=== PATIENT | female | born 1960 | race Caucasian/White ===

== ENCOUNTER 2018-04-25 11:30 | Outpatient (CLI) | payer MEDICARE ==
[2018-04-25] MEDS ORDERED: IOVERSOL 320 50 ML VIAL ONE (11:42)
[2018-04-25] MEDS ORDERED: IOPAMIDOL-300 100 ML VIAL ONE (11:42)
[2018-04-25 12:00] LABS: CREATININE 0.9 mg/dL (0.4-1.0)
[2018-04-25] MEDS ORDERED: IOPAMIDOL-300 100 ML VIAL IVP ONE (12:57)
[2018-04-25] MEDS ORDERED: IOVERSOL 320 50 ML VIAL PO ONE (12:58)
--- NOTE | 2018-04-25 17:02 | CT Report ---
Reason: RENAL CA Procedure Date: 04/25/2018 Accession Number: [id number] / [id number] Procedure: CT - CHEST W CPT Code: FULL RESULT: EXAM: CT CHEST WITH CONTRAST. EXAM DATE: 04/25/2018 12:46 PM. CLINICAL HISTORY: Renal cancer. COMPARISONS: ABDOMEN/PELVIS W/ 04/25/2018 12:47 PM. TECHNIQUE: Routine helical CT imaging was performed through the chest. IV contrast: 100 cc of Isovue-300. Reconstructions: Coronal and sagittal. In accordance with CT protocol optimization, one or more of the following dose reduction techniques were utilized for this exam: automated exposure control, adjustment of mA and/or KV based on patient size, or use of iterative reconstructive technique. FINDINGS: Lungs/Pleura: No bronchial thickening, consolidation, or edema. Pulmonary vasculature is normal. No pericardial or pleural effusion. No pneumothorax. Lung nodules as follows: Right upper lobe: 5 mm partially calcified nodule image 24. Right middle lobe: None. Right lower lobe: None. Left upper lobe/lingula: None. Left lower lobe: 7 mm ill-defined pulmonary nodule image 31. 2 mm calcified pulmonary nodule image 41. Mediastinum: No adenopathy or masses. Heart and great vessels appear normal. Nonspecific circumferential wall thickening (up to 7 mm in thickness) distal 5 cm of the esophagus with small hiatal hernia. Bones: Unremarkable. Visualized Abdomen: Reported separately. Other: None. IMPRESSION: 1. 7 mm ill-defined pulmonary nodule in the left lower lobe is indeterminate. In the setting of history of renal cell carcinoma, consider short interval follow-up imaging in 3 months to assess stability. If the finding remains stable, longer term follow-up could be performed. 2. Circumferential thickening distal esophagus associated with small hiatal hernia. Consider further evaluation with double contrast barium study to assess mucosa and for reflux versus direct visualization with endoscopy. [facility]
--- NOTE | 2018-04-25 17:02 | CT Report ---
Reason: RENAL CA Procedure Date: 04/25/2018 Accession Number: [id number] / [id number] Procedure: CT - Abdomen/Pelvis W CPT Code: FULL RESULT: EXAM: CT ABDOMEN AND PELVIS EXAM DATE: 04/25/2018 12:46 PM. CLINICAL HISTORY: Renal cancer. COMPARISONS: None. TECHNIQUE: Routine helical CT imaging was performed through the abdomen and pelvis. IV contrast: ISOVUE 300 100 mL. Enteric contrast: No. Reconstructions: Coronal and sagittal. In accordance with CT protocol optimization, one or more of the following dose reduction techniques were utilized for this exam: automated exposure control, adjustment of mA and/or KV based on patient size, or use of iterative reconstructive technique. FINDINGS: Lung Bases: Dictated separately. For chest CT findings please see separate dictation. Liver: Normal. No masses. Gallbladder/Bile Ducts: Unremarkable. Spleen: Normal. Pancreas: Normal. Adrenal Glands: Normal. Kidneys: Right kidney is surgically absent. Left kidney is normal in appearance. No mass, stone or hydronephrosis. Peritoneal Cavity/Bowel: No free fluid, free air or adenopathy. No masses or acute inflammatory process. The appendix is well visualized and normal. Multiple vascular clips are noted along bilateral iliac vessels presumably from prior lymph node resection. Pelvic Organs: Normal. The bladder and visualized pelvic organs are within normal limits. Uterus and ovaries are surgically absent. Vasculature: No aneurysms or other significant abnormality. Bones: No significant abnormality. Other: Small fat-containing periumbilical hernia is also noted. IMPRESSION: 1. Expected changes status post right nephrectomy. 2. Otherwise no specific abnormality demonstrated. [facility]
== END 2018-04-25 11:31 | disposition home or self-care (01) ==
LOC: DI 11:30
PROVIDERS: ATTEND Specialist
DX: C64.1 Malignant neoplasm of right kidney, except renal pelvis (principal); Z90.5 Acquired absence of kidney; R91.1 Solitary pulmonary nodule; K44.9 Diaphragmatic hernia without obstruction or gangrene
CPT/HCPCS: 36415; 71260; 74177; 82565; Q9967